=== PATIENT | male | born 2000 | race Caucasian/White ===

== ENCOUNTER 2022-01-26 14:54 | Outpatient (REF) | payer BC, SELFPAY ==
--- NOTE | ~2022-01-26 | US_ITS ---
EXAMINATION: US SCROTUM CLINICAL INFORMATION: Benign neoplasm of unspecified testis. COMPARISON: None TECHNIQUE: A sonogram of the scrotum was performed assessing kuo-scale appearance and color Doppler flow. Spectral Doppler analysis of the arterial and venous flow were performed in the testes bilaterally. FINDINGS: RIGHT: Right testicle measures 4.3 x 2.5 x 2.8 cm, volume 15.7 mL. No focal testicular parenchymal lesions are visualized. Spectral Doppler analysis of the arterial and venous flow is normal in the right testis. Right epididymal head is normal in size. No right varicocele is seen. There is a small right hydrocele. Right epididymal Doppler flow is normal. LEFT: Left testicle measures 4.2 x 2.4 x 3.0 cm, volume 15.8 mL. No focal testicular parenchymal lesions are visualized. Spectral Doppler analysis of the arterial and venous flow is normal in the left testis. Left epididymal head is normal in size. No left varicocele is seen. There is a small left hydrocele and a small left epididymal head cyst measuring 0.7 x 0.5 x 0.4 cm and cyst in the body measuring 0.3 x 0.2 x 0.3 cm. Left epididymal Doppler flow is normal. US/US scrotum IMPRESSION: Bilateral small hydroceles. At least 2 left epididymal head and body cysts. Normal bilateral testes.
== END 2022-01-26 14:55 | disposition home or self-care (01) ==
LOC: HO.US 14:54
PROVIDERS: Visit Provider Internal Medicine
DX: D29.20 Benign neoplasm of unspecified testis (principal)
CPT/HCPCS: 76870